=== PATIENT | female | born 1990 | race Caucasian/White ===

== ENCOUNTER 2024-10-24 05:58 | Day surgery (SDC) | payer OTHER ==
[2024-10-21 16:45] VITALS: BP 127/87
[~2024-10-24] VITALS: Ht 162.6 cm; Wt 88.6 kg
[~2024-10-24 05:58] MED LIST: DESVENLAFAXINE50 M3 PO; LACTATED RINGER'S 1,000 ML IV SCH; METOPROLOL SUCC25 MG PO; NEXPLANON68 MG SUB-Q; VIT D3-VIT K21 EACH PO
[2024-10-24 06:12] VITALS: BP 123/85
[2024-10-24] MEDS ORDERED: BUPIVACAINE HCL 0.25% 50 ML MDV ONE (06:47)
[2024-10-24] MEDS ORDERED: IBLOOD GLUCOSE TEST STRIP 1 EA TEST VI PRN ×2 (07:00→08:30)
[2024-10-24] MEDS ORDERED: LIDOCAINE HCL 1% 5 ML SDV INJ ONE (07:00)
[2024-10-24] MEDS ORDERED: DEXAMETHASONE SOD PHOS 4 MG/ML VIAL ONE (07:18)
[2024-10-24] MEDS ORDERED: propofoL 200 MG/20 ML VIAL ONE (07:18)
[2024-10-24] MEDS ORDERED: ondansetron HCL 4 MG/2 ML VIAL ONE (07:18)
[2024-10-24] MEDS ORDERED: ROCURONIUM BROMIDE 50 MG/5 ML SYR ONE (07:18)
[2024-10-24] MEDS ORDERED: KETOROLAC TROMETHAMINE 30 MG/ML VIAL ONE (07:18)
[2024-10-24] MEDS ORDERED: SUGAMMADEX SODIUM 200 MG/2 ML ML ONE (07:18)
[2024-10-24] MEDS ORDERED: ACETAMINOPHEN 1,000 MG/100 ML VIAL ONE (07:18)
[2024-10-24] MEDS ORDERED: MIDAZOLAM HCL 2 MG/2 ML VIAL ONE (07:18)
[2024-10-24] MEDS ORDERED: fentaNYL citrate 100 MCG/2 ML VIAL ONE (07:19)
[2024-10-24] MEDS ORDERED: MAGNESIUM SULFATE 1 GM/2 ML VIAL ONE (07:21)
[2024-10-24] MEDS ORDERED: LIDOCAINE HCL 2% 20 MG/ML VIAL INJ ONE (07:21)
[2024-10-24] MEDS ORDERED: dexmedeTOMIDine HCl 200 MCG/2 ML VIAL ONE (07:22)
--- NOTE | 2024-10-24 07:29 | NUR ---
PT NOT AVAILABLE FOR VISIT. PROVIDED PRAYER.
[2024-10-24] MEDS ORDERED: fentaNYL citrate 50 MCG/ML SDV IV PRN (08:30)
[2024-10-24] MEDS ORDERED: PROCHLORPERAZINE EDISYLATE 10 MG/2 ML VIAL IV PRN ×2 (08:30→09:15)
[2024-10-24] MEDS ORDERED: droPERidol 5 MG/2 ML VIAL IV PRN (08:30)
[2024-10-24] MEDS ORDERED: HYDROmorphone HCL 1 MG/ML SYR IV PRN (08:30)
[2024-10-24] MEDS ORDERED: NALOXONE HCL 0.4 MG SYR IV PRN ×2 (08:30→09:15)
[2024-10-24] MEDS ORDERED: ondansetron HCL 4 MG/2 ML VIAL IV PRN ×2 (08:30→09:15)
--- NOTE | 2024-10-24 09:03 | NUR ---
10/24/24 0903 Amada Abreu 0841- PT ARRIVES TO THE PACU WITH A NATURAL AIRWAY ON 6L OF O2 VIA MASK. BREATHING IS EVEN AND UNLABORED. PT REACHES TOWARDS HER FACE. PT IS ABLE TO DENY PAIN AND NAUSEA. ALL MONITORS PUT IN PLACE. VSS. ABDOMEN IS SOFT AND NONDISTENDED. PT SHOWS NO SIGNS OF APPARENT DISTRESS. PT EASILY FALLS BACK TO SLEEP. SURGICAL SITE IS CDI. 0855- O2 TURNED OFF AND REMOVED. PT IS ABLE TO MAINTAIN SATS ABOVE 95%. PT DENIES PAIN AND NAUSEA. 0900- VSS. PLAN OF CARE DISCUSSED. PT DENIES HAVING QUESTIONS OR CONCERNS. PT DENIES PAIN AND NAUSEA. PT RESTING WITH EYES CLOSED. WILL CONTINUE TO MONITOR.
[2024-10-24] MEDS ORDERED: MAGNESIUM HYDROXIDE/AL HYDROX 30 ML CUP PO PRN (09:15)
[2024-10-24] MEDS ORDERED: MORPHINE SULFATE 10 MG/ML VIAL IV PRN (09:15)
[2024-10-24] MEDS ORDERED: FAMOTIDINE 20 MG TAB PO PRN (09:15)
[2024-10-24] MEDS ORDERED: OXYCODONE/APAP 5/325 TAB PO PRN (09:15)
[2024-10-24 09:17] VITALS: BP 101/68
--- NOTE | 2024-10-24 09:24 | NUR ---
0910 PT ARRIVED TO DAY SURGERY FROM PACU VIA STREACHER. PT AWAKE AND ORIENTED. REPORT TAKEN FROM CORTEZ JACOBO. PT REPORTS NO PAIN OR NAUSEA AT THIS TIME. PT HAS 3 LAP SITES WITH STERI STRIPS AND BANDAIDS WHICH ARE CDI. PT HAS SCDS IN PLACE AND RUNNING. PT SPOUSE AT BEDSIDE. 0915 PT HAS PUDDING AND WATER AT BEDSIDE. PT HAS CALL LIGHT WITHIN REACH. BED LOW AND LOCKED.
[2024-10-24 10:07] VITALS: BP 105/63
--- NOTE | 2024-10-24 10:11 | NUR ---
1005 HOURLY ROUNDING DONE WITH PT. VITALS TAKEN, SURGICAL SITES ASSESSED. PT RESTING IN BED WITH HOB ELEVATED, PT HAS TOLERATED PO SNACKS AND WATER. PT REPORTS NO NAUSEA, AND A TOLERABLE 1/10 PAIN. PT HAS AT BEDSIDE. PT REPORTS NO URGE TO URINATE YET. PT HAS CALL LIGHT WITHIN REACH AND PERSONAL ITEMS WITHIN REACH. BED IS LOW AND LOCKED.
[2024-10-24 10:58] VITALS: BP 108/80
--- NOTE | 2024-10-24 11:04 | NUR ---
1100 pt able to ambulate to bathroom and void 500 mls of clear yellow urine. pt ambulated back to room and is getting dressed with spouse in room. pt reports tolerable 1/10 pain and no nausea at this time.
--- NOTE | 2024-10-24 11:27 | NUR ---
1110 PT DRESSED. DISCHARGE INSTUCTIONS GONE OVER WITH PT AND SPOUSE. ALL QUESTIONS ANSWERED FROM PT AND SPOUSE. IV REMOVED FOR DISCHARGE. 1120 PT DISCHARGED FROM DAY SURGERY VIA WHEELCHAIR TO FRONT OF THE HOSPITAL TO PT'S SPOUSE'S CAR.
[2024-10-24] MEDS ORDERED: SEVOFLURANE 250 ML BTL INH ONE (15:13)
--- NOTE | 2024-10-25 21:42 | OR ---
[facility] [address] [place], [place] [address] Signed DATE OF OPERATION: 10/24/2024 SURGEON: Gabriela Arrieta DO PREOPERATIVE DIAGNOSES: 1. Desires prophylactic salpingectomy. 2. Family history of ovarian cancer. POSTOPERATIVE DIAGNOSES: 1. Desires prophylactic salpingectomy. 2. Family history of ovarian cancer. PROCEDURE PERFORMED: Laparoscopic bilateral salpingectomy. ANESTHESIA: General. ESTIMATED BLOOD LOSS: 5 mL. SPECIMENS: Bilateral fallopian tubes. DRAINS: Pickett to gravity. FINDINGS: Normal external genitalia with normal clitoris, urethral meatus, bilateral [place]'s and Bartholin's glands. Normal vagina and cervix. On laparoscopy, normal liver, gallbladder, and appendix. Normal uterus, tubes, and ovaries. Hemostasis at the end of procedure. COMPLICATIONS: None. INDICATIONS: Ms. Lane is a very pleasant 34-year-old G0 female, who desires bilateral salpingectomy. She has a family history of ovarian cancer and BRCA was negative. We reviewed the procedure including risks, benefits, and alternatives. She is not Electronically Signed By: GABRIELA ARRIETA DO (JD) 10/25/242141 PATIENT NAME: ROCHELLE LANE OPERATIVE REPORT DATE OF : [birth year] REPORT #: [id number] PHYSICIAN: GABRIELA ARRIETA DO (JD) PCP: NO PRIMARY CARE PHYSICIAN REPORT IS CONFIDENTIAL AND NOT TO BE RELEASED WITHOUT AUTHORIZATION [facility] [address] [facility] [place], [place] [address] Signed interested in future fertility. The patient understands and wished to proceed with the procedure. DESCRIPTION OF PROCEDURE: The patient was taken to the OR where time-out was performed to confirm correct patient and correct procedure. General anesthesia was adequately established. The patient was prepped and draped in dorsal lithotomy position with feet in Yellofin stirrups. ICPs were on and running. No preoperative antibiotics or heparin was indicated. Weighted speculum was placed in the vagina and the anterior lip of the cervix was grasped with an Allis clamp. The cervix was gently dilated and a Hulka uterine manipulator was placed. A Pickett catheter was inserted. Surgical gloves were changed and attention was turned to the abdomen. The base of the umbilicus was infiltrated with 0.25% Marcaine with epinephrine and a 5 mm stab incision was made with an 11 blade. A 5 mm port was used to perform a direct visualization entry into the abdomen through the subcu fascia, rectus and peritoneum without difficulty. Pneumoperitoneum was established and survey of the abdomen and pelvis was performed. 5 mm assist ports were placed in the left lower and right lower quadrant under direct visualization. Normal liver, gallbladder, and appendix were appreciated. Attention was turned to the pelvis. The left fallopian tube was grasped with a blunt retractor, elevated and divided along the mesosalpinx and amputated at the cornu. The process was repeated on the right side without difficulty. Excellent hemostasis was appreciated. The fallopian tubes were sent to pathology for further evaluation. The pelvis was carefully examined and found to be hemostatic. Pneumoperitoneum was reduced and trocars were removed. Trocar sites were repaired using 4-0 Vicryl Rapide and subcuticular stitch. The Pickett catheter and uterine manipulator were removed and the patient was taken to PACU in good and stable condition. Sponge, needle and instrument counts were correct x2 at the end of the procedure. Gabriela Arrieta DO JCORNELIUS/MODL /[id number] Electronically Signed By: GABRIELA ARRIETA (JD), DO 10/25/24 [address] PATIENT NAME: ROCHELLE LANE OPERATIVE REPORT DATE OF : [birth year] REPORT #: [id number] PHYSICIAN: GABRIELA ARRIETA DO (JD) PCP: NO PRIMARY CARE PHYSICIAN REPORT IS CONFIDENTIAL AND NOT TO BE RELEASED WITHOUT AUTHORIZATION [facility] [address] [place] [address] Signed Copies: ~ Electronically Signed By: GABRIELA ARRIETA (JD), DO 10/25/24 [address] PATIENT NAME: ROCHELLE LANE OPERATIVE REPORT DATE OF : [birth year] REPORT #: [id number] PHYSICIAN: GABRIELA ARRIETA (DANETTE) DO PCP: NO PRIMARY CARE PHYSICIAN REPORT IS CONFIDENTIAL AND NOT TO BE RELEASED WITHOUT AUTHORIZATION
--- NOTE | 2024-10-28 13:21 | PATH ---
[facility] [address] [place], [place] [address] Signed SPECIMEN(S): A FALLOPIAN TUBES, BILATERAL SPECIMEN SOURCE: A. FALLOPIAN TUBES, BILATERAL CLINICAL HISTORY: Prophylactic bilateral salpingectomy. Family history uterine and breast cancer. FINAL PATHOLOGIC DIAGNOSIS: Bilateral fallopian tubes: - Two segments of benign fimbriated oviduct. JVR:clv MICROSCOPIC EXAMINATION: Histologic sections of all submitted blocks are examined by light microscopy. These findings, together with the gross examination, support the pathologic diagnosis. GROSS DESCRIPTION: The specimen, labeled and designated "Bob Lane, " and designated on the requisition "bilateral fallopian tubes," is received in formalin and consists of two undesignated fallopian tubes that measure 5.4 x 0.6 cm and 5.3 x 0.7 cm. The serosal surfaces are violaceous and smooth with delicate fimbriae. One tube is arbitrarily inked. Fimbriae are entirely submitted. Supervisor Area sections are submitted in (A1-A2). FB (under the direct supervision of a pathologist) The Gross Description was prepared using a voice recognition system. The report was reviewed for accuracy; however, sound-alike word errors, addition and/or deletions may occur. If there is any question about this report, please contact Client Services. PERFORMING LABORATORY: Technical component was performed by [facility], [address] [place] [id number] (CLIA# [id number]). Professional interpretation was performed by [facility], [address] [place] [id number] (CLIA#: [id number]). Diagnostician: Armando Damon MD Pathologist PATIENT NAME: ROCHELLE LANE PATHOLOGY DATE OF : [birth year] REPORT #: [id number] PHYSICIAN: [facility] PCP: NO PRIMARY CARE PHYSICIAN REPORT IS CONFIDENTIAL AND NOT TO BE RELEASED WITHOUT AUTHORIZATION [address] [address] Signed Electronically Signed 10/28/2024 Copies: ~ PATIENT NAME: ROCHELLE LANE PATHOLOGY DATE OF : [birth year] REPORT #: [id number] PHYSICIAN: [facility] PCP: NO PRIMARY CARE PHYSICIAN REPORT IS CONFIDENTIAL AND NOT TO BE RELEASED WITHOUT AUTHORIZATION
== END 2024-10-24 11:20 | disposition home or self-care (01) ==
LOC: OPS 05:58 → DS 05:58 → OPS 07:30 → DS 08:45 → OPS 11:20
PROVIDERS: ATTEND Obstetrics & Gynecology
PROC: 0UT74ZZ Resection of Bilateral Fallopian Tubes, Percutaneous Endoscopic Approach (ICD-10-PCS; principal; 2024-10-24 07:30)
DX: Z40.03 Encounter for prophylactic removal of fallopian tube(s) (principal); I10 Essential (primary) hypertension; Z79.899 Other long term (current) drug therapy; Z91.012 Allergy to eggs; Z80.41 Family history of malignant neoplasm of ovary; Z80.3 Family history of malignant neoplasm of breast; Z80.8 Family history of malignant neoplasm of other organs or systems
CPT/HCPCS: 00840; J0131; J1100; J1885; J2250; J2405; J2704; J3010; J3475; J3490; J7121